=== PATIENT | female | born 1990 | race Caucasian/White ===

== ENCOUNTER 2019-12-03 23:37 | Emergency (ER) | payer MEDICAID ==
[~2019-12-03] VITALS: Ht 172.7 cm; Wt 96.0 kg
[2019-12-04] MEDS ORDERED: KETOROLAC 30 MG/1 ML IM ONE
[2019-12-04] MEDS ORDERED: METHOCARBAMOL 750 MG TABLET PO ONE
[2019-12-04] MEDS ORDERED: OXYcodone/APAP 5/325MG TABLET PO ONE
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
[2019-12-04 00:04] VITALS: BP 169/108
[2019-12-04] MEDS ORDERED: METHOCARBAMOL 750 MG TABLET ONE (00:24)
[2019-12-04] MEDS ORDERED: KETOROLAC 30 MG/1 ML ONE (00:24)
[2019-12-04] MEDS ORDERED: OXYcodone/APAP 5/325MG TABLET ONE (00:24)
--- NOTE | 2019-12-04 00:51 | NUR ---
Patient given discharge instructions and they have confirmed that they understand the instructions. Patient ambulatory with steady gait, used wheelchair to dc for comfort. NAD, denies additional needs at this time. questions answered appropriately. no belongings left in room at time of DC.
== END 2019-12-04 00:57 | disposition home or self-care (01) ==
LOC: ED 12-04 00:07
DX: S39.012A Strain of muscle, fascia and tendon of lower back, initial encounter (principal); S29.012A Strain of muscle and tendon of back wall of thorax, initial encounter; X58.XXXA Exposure to other specified factors, initial encounter; Y93.89 Activity, other specified; Y92.89 Other specified places as the place of occurrence of the external cause; Y99.8 Other external cause status
CPT/HCPCS: 96372; 99283; J1885

== ENCOUNTER 2020-05-22 19:17 | Emergency (ER) | payer MEDICAID ==
[~2020-05-22] VITALS: Ht 170.2 cm; Wt 88.5 kg
[2020-05-22 19:28] VITALS: BP 162/102
[2020-05-22] MEDS ORDERED: KETOROLAC 30 MG/1 ML IM ONE (20:30)
[2020-05-22] MEDS ORDERED: ACETAMINOPHEN 500 MG TABLET PO ONE (20:30)
[2020-05-22] MEDS ORDERED: ACETAMINOPHEN 500 MG TABLET ONE (20:33)
[2020-05-22] MEDS ORDERED: KETOROLAC 30 MG/1 ML ONE (20:34)
[2020-05-22 21:00] LABS: BASOPHILS % (AUTO) 1 % (0-1); EOSINOPHILS % (AUTO) 0 % (1-7); LYMPHOCYTES % (AUTO) 27 % (22-44); MEAN CORPUSCULAR HEMOGLOBIN 31.5 pg (27.0-34.8); MEAN CORPUSCULAR HGB CONC 34.6 g/dL (32.4-35.8); MEAN PLATELET VOLUME 7.6 fL (7.4-10.4); MONOCYTES % (AUTO) 21 % (2-9); NEUTROPHILS % (AUTO) 51 % (42-75); PLATELET COUNT 292 x10^3/uL (130-400); RED BLOOD COUNT 4.41 x10^6/uL (3.82-5.3); RED CELL DISTRIBUTION WIDTH 13.6 % (9.6-15.2)
[2020-05-22 21:07] LABS: ALANINE AMINOTRANSFERASE 24 U/L (12-78); ALBUMIN 3.7 g/dL (3.4-5.0); ANION GAP 6 mmol/L (5-15); CALCIUM 8.7 mg/dL (8.5-10.1); CHLORIDE 110 mmol/L (98-107); CREATININE 1.05 mg/dL (0.55-1.02)
[2020-05-22 21:10] LABS: ALKALINE PHOSPHATASE 65 U/L (45-117); BILIRUBIN,TOTAL 0.2 mg/dL (0.2-1.0); TOTAL PROTEIN 7.6 g/dL (6.4-8.2)
[2020-05-22 21:39] LABS: MD SCAN
== END 2020-05-22 22:10 | disposition home or self-care (01) ==
LOC: ED 22:00
DX: U07.1 COVID-19 (principal); J06.9 Acute upper respiratory infection, unspecified; R11.2 Nausea with vomiting, unspecified; R51.9 Headache, unspecified; M79.10 Myalgia, unspecified site
CPT/HCPCS: 71045; 80053; 85025; 87635; 99284

== ENCOUNTER 2020-05-27 15:09 | Emergency (ER) | payer MEDICAID ==
[~2020-05-27] VITALS: Ht 170.2 cm; Wt 98.9 kg
[2020-05-27 15:15] VITALS: BP 140/116
[2020-05-27] MEDS ORDERED: KETOROLAC 30 MG/1 ML IM ONE (15:30)
[2020-05-27] MEDS ORDERED: PROMETHAZINE 25 MG/ML, 1ML ONE ×2 (15:41→15:50)
[2020-05-27] MEDS ORDERED: KETOROLAC 30 MG/1 ML ONE ×2 (15:42→15:50)
--- NOTE | 2020-05-27 15:45 | NUR ---
Pt medicated with phenergan and toradol. ptg states she is coughing at night and it is keeping her up at night.
[2020-05-27] MEDS ORDERED: PROMETHAZINE 25 MG/ML, 1ML IM ONE (16:00)
== END 2020-05-27 16:35 | disposition home or self-care (01) ==
LOC: ED 16:25
DX: U07.1 COVID-19 (principal); J06.9 Acute upper respiratory infection, unspecified; K52.9 Noninfective gastroenteritis and colitis, unspecified; E66.9 Obesity, unspecified
CPT/HCPCS: 71045; 93005; 96372; 99284; J1885; J2550

== ENCOUNTER 2020-07-29 23:50 | Emergency (ER) | payer MEDICAID ==
[~2020-07-29] VITALS: Ht 172.7 cm; Wt 100.6 kg
[2020-07-30 00:40] LABS: BASOPHILS % (AUTO) 1 % (0-1); EOSINOPHILS % (AUTO) 2 % (1-7); LYMPHOCYTES % (AUTO) 36 % (22-44); MEAN CORPUSCULAR HEMOGLOBIN 31.2 pg (27.0-34.8); MEAN PLATELET VOLUME 7.5 fL (7.4-10.4); MONOCYTES % (AUTO) 6 % (2-9); NEUTROPHILS % (AUTO) 55 % (42-75); PLATELET COUNT 330 x10^3/uL (130-400); RED BLOOD COUNT 4.23 x10^6/uL (3.82-5.3); RED CELL DISTRIBUTION WIDTH 13.6 % (9.6-15.2)
[2020-07-30 00:43] LABS: MD NO
[2020-07-30 00:47] LABS: ALBUMIN 3.6 g/dL (3.4-5.0); ANION GAP 6 mmol/L (5-15); CALCIUM 8.6 mg/dL (8.5-10.1); CHLORIDE 108 mmol/L (98-107); CREATININE 1.12 mg/dL (0.55-1.02)
--- NOTE | 2020-07-30 01:53 | NUR ---
data deliverables manager: pt moved from lobby to room 25
[2020-07-30] MEDS ORDERED: ACETAMINOPHEN 500 MG TABLET ONE (02:03)
--- NOTE | 2020-07-30 02:17 | NUR ---
Break RN: urine sent to lab.
[2020-07-30 02:24] LABS: MICROSCOPIC AUTO
[2020-07-30] MEDS ORDERED: ACETAMINOPHEN 500 MG TABLET PO ONE (02:30)
[2020-07-30 02:54] VITALS: BP 142/81
--- NOTE | 2020-07-30 03:07 | NUR ---
Patient given discharge instructions and they have confirmed that they understand the instructions. Patient ambulatory with steady gait. nad, denies additional questions or needs at this time. no personal belongings left in room after dc.
== END 2020-07-30 03:12 | disposition home or self-care (01) ==
LOC: ED 07-30 02:25
DX: O20.0 Threatened abortion (principal); O26.891 Other specified pregnancy related conditions, first trimester; R10.30 Lower abdominal pain, unspecified; O99.331 Smoking (tobacco) complicating pregnancy, first trimester; F17.210 Nicotine dependence, cigarettes, uncomplicated; Z3A.01 Less than 8 weeks gestation of pregnancy
CPT/HCPCS: 36415; 76801; 80048; 81001; 82040; 84702; 85025; 86901; 87086; 99406

== ENCOUNTER 2020-08-02 18:04 | Emergency (ER) | payer MEDICAID ==
[~2020-08-02] VITALS: Ht 172.7 cm; Wt 99.3 kg
--- NOTE | 2020-08-02 18:15 | NUR ---
NA X1
[2020-08-02 18:22] VITALS: BP 157/98
--- NOTE | 2020-08-02 19:52 | NUR ---
ER PA DISCUSSING RESULTS WITH PT IN TRIAGE NOW.
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
== END 2020-08-02 20:00 | disposition home or self-care (01) ==
LOC: ED 19:58
DX: O03.4 Incomplete spontaneous abortion without complication (principal); N93.9 Abnormal uterine and vaginal bleeding, unspecified; R10.2 Pelvic and perineal pain; E66.9 Obesity, unspecified; Z68.33 Body mass index [BMI] 33.0-33.9, adult; F17.210 Nicotine dependence, cigarettes, uncomplicated
CPT/HCPCS: 36415; 84702; 99283; 99406

== ENCOUNTER 2020-11-29 20:03 | Emergency (ER) | payer MEDICAID ==
[~2020-11-29] VITALS: Ht 170.2 cm; Wt 101.0 kg
[2020-11-29 20:38] VITALS: BP 161/123
--- NOTE | 2020-11-29 21:57 | NUR ---
REGISTRATION COORDINATOR: NIL X 1 WHEN CALLED FOR US.
--- NOTE | 2020-11-29 22:34 | NUR ---
PT CALLED FOR US. NA X2
--- NOTE | 2020-11-29 23:07 | NUR ---
NIL X 3
== END 2020-11-29 23:08 | disposition left against medical advice (07) ==
LOC: ED 20:30
DX: N93.9 Abnormal uterine and vaginal bleeding, unspecified (principal); M54.5 Low back pain; G89.29 Other chronic pain; R10.9 Unspecified abdominal pain
CPT/HCPCS: 99281